=== PATIENT | female | born 1990 | race Caucasian/White ===

== ENCOUNTER 2020-05-05 11:55 | Emergency (ER) | payer OTHER ==
[2020-05-05 13:21] LABS: HEMOGLOBIN 14.8 gm/dl (12.3-15.3); RED BLOOD COUNT 5.2 M/UL (4.00-5.10); WHITE BLOOD COUNT 8.5 K/UL (4.5-11.0)
[2020-05-05 13:42] LABS: BUN/CREATININE RATIO 16 (0-10)
[2020-05-05] MEDS ORDERED: ZOFRAN4 MG PO (16:13)
[2020-05-05] MEDS ORDERED: BENTYL 10MG CAP10 MG PO (16:13)
[2020-05-05] MEDS ORDERED: MIRALAX17 GM PO (16:13)
== END 2020-05-05 16:32 | disposition home or self-care (01) ==
LOC: ER1 11:55
PROVIDERS: Physician Assistant Medical
DX: K59.00 Constipation, unspecified (principal); Z88.0 Allergy status to penicillin
CPT/HCPCS: 80053; 81001; 82150; 83690; 84703; 85025; 85652; 86140; 96374; 96375; 99284; C9113; J2405; J7030; Q9967

== ENCOUNTER → 2021-07-03 | Outpatient (CLI) | payer OTHER ==
[~2021-07-03] MED LIST: BENTYL 10MG CAP10 MG PO; MIRALAX17 GM PO; ZOFRAN4 MG PO
== END ==
LOC: US 12:54
DX: E04.1 Nontoxic single thyroid nodule (principal)
CPT/HCPCS: 76536

== ENCOUNTER → 2021-09-11 | Outpatient (CLI) | payer OTHER | LOC: NM 09:43 | DX: R74.8 Abnormal levels of other serum enzymes (principal) | CPT/HCPCS: 78306; A9503 ==